=== PATIENT | female | born 1970 | race Caucasian/White ===

== ENCOUNTER 2023-09-20 15:05 | Emergency (ER) | payer OTHER ==
[~2023-09-20] VITALS: Ht 167.6 cm; Wt 79.5 kg
[2023-09-20 15:14] VITALS: BP 140/83; PULSE 86; RESP 16; TEMP 98; O2SAT 98
== END 2023-09-20 18:25 | disposition home or self-care (01) ==
LOC: ER 15:06
DX: S82.892A Other fracture of left lower leg, initial encounter for closed fracture (principal); X58.XXXA Exposure to other specified factors, initial encounter; Y93.89 Activity, other specified; Y92.89 Other specified places as the place of occurrence of the external cause; Y99.8 Other external cause status
CPT/HCPCS: 29515; 73590; 99284; A6449